=== PATIENT | male | born 1945 | race Caucasian/White ===

== ENCOUNTER 2018-05-09 14:45 | Inpatient (IN) | payer OTHER ==
[~2018-05-09] VITALS: Ht 175.3 cm; Wt 87.2 kg
[2018-05-09] MEDS ORDERED: SIMV40TA3 PO (17:03)
[2018-05-09] MEDS ORDERED: FENO200C PO (17:03)
[2018-05-09] MEDS ORDERED: OMEP-110 PO (17:03)
[2018-05-09] MEDS ORDERED: AMLO10TA8 PO (17:03)
[2018-05-09] MEDS ORDERED: LOSA50TA14 PO (17:03)
[2018-05-09] MEDS ORDERED: METO50TA82 PO (17:03)
[2018-05-09] MEDS ORDERED: ASPI-496 PO (17:03)
--- NOTE | 2018-05-09 17:05 | NUR ---
PT TO ED FOR DARK BLACK, TARRY STOOLS SINCE THIS AM. MILD NAUSEA REPORTED. NO VOMITING OR ABD PAIN. CONNECTED TO MONITORS. HTN 150S, ALL OTHER VSS. AWAITING EDMD ASSESSMENT.
[2018-05-09] MEDS ORDERED: PANTOPRAZOLE 80 MG in SODIUM CHLORIDE 0.9% 50 ML IVPB ONE (17:16)
[2018-05-09 17:34] LABS: BASOPHILS # (AUTO) 0.03 x10^3/uL (0-0.1); BASOPHILS % (AUTO) 0 % (0-1); EOSINOPHILS # (AUTO) 0.02 x10^3/uL (0-0.4); EOSINOPHILS % (AUTO) 0 % (1-7); LYMPHOCYTES # (AUTO) 1.67 x10^3/uL (1-3.4); LYMPHOCYTES % (AUTO) 22 % (22-44); MD NO; MEAN CORPUSCULAR HGB CONC 34.4 g/dL (33.2-36.2); MEAN CORPUSCULAR VOLUME 93.1 fL (81-97); MEAN PLATELET VOLUME 8.5 fL (7.4-10.4); MONOCYTES # (AUTO) 0.65 x10^3/uL (0.2-0.8); MONOCYTES % (AUTO) 9 % (2-9); NEUTROPHILS # (AUTO) 5.24 x10^3/uL (1.8-6.8); NEUTROPHILS % (AUTO) 69 % (42-75); PLATELET COUNT 228 x10^3/uL (130-400); RED BLOOD COUNT 4.83 x10^6/uL (4.38-5.82); RED CELL DISTRIBUTION WIDTH 13.1 % (9.4-14.8)
[2018-05-09 17:43] LABS: ALANINE AMINOTRANSFERASE 36 U/L (12-78); ALBUMIN 3.7 g/dL (3.4-5.0); ANION GAP 5 mmol/L (5-15); CALCIUM 10.4 mg/dL (8.5-10.1); CHLORIDE 112 mmol/L (98-107); CREATININE 0.94 mg/dL (0.7-1.3)
[2018-05-09 17:52] LABS: ALKALINE PHOSPHATASE 48 U/L (45-117); BILIRUBIN,TOTAL 0.6 mg/dL (0.2-1.0); TOTAL PROTEIN 6.7 g/dL (6.4-8.2); TROPONIN I 0.027 ng/mL (0.000-0.045)
[2018-05-09] MEDS: PANTOPRAZOLE 80 MG in SODIUM CHLORIDE 0.9% 100 ML IV SCH ×2 (18:20→20:36)
[2018-05-09] MEDS ORDERED: PANTOPRAZOLE 80 MG in SODIUM CHLORIDE 0.9% 100 ML IV SCH (19:00)
[2018-05-09] MEDS ORDERED: SODIUM CHLORIDE 0.9% 1,000 ML IV SCH (19:20)
[2018-05-09] MEDS ORDERED: ONDANSETRON 2MG/ML, 2ML IVPush PRN (19:30)
[2018-05-09] MEDS ORDERED: hydrALAzine 20 MG/ML, 1ML IVPush PRN (19:30)
[2018-05-09 19:49] VITALS: BP 162/110
[2018-05-09] MEDS: AMLODIPINE 5 MG TABLET PO SCH (20:35)
[2018-05-09] MEDS ORDERED: SIMVASTATIN 40 MG TABLET PO SCH (21:00)
[2018-05-09] MEDS ORDERED: AMLODIPINE 10 MG TAB PO SCH (21:00)
[2018-05-09] MEDS: LOSARTAN 50MG TABLET PO SCH (21:08)
[2018-05-10 01:21] LABS: ALANINE AMINOTRANSFERASE 33 U/L (12-78); ALBUMIN 3.6 g/dL (3.4-5.0); ANION GAP 4 mmol/L (5-15); CALCIUM 9.3 mg/dL (8.5-10.1); CHLORIDE 112 mmol/L (98-107)
[2018-05-10 01:24] LABS: ALKALINE PHOSPHATASE 49 U/L (45-117); BILIRUBIN,TOTAL 0.6 mg/dL (0.2-1.0); CREATININE 1.07 mg/dL (0.7-1.3); TOTAL PROTEIN 6.2 g/dL (6.4-8.2)
[2018-05-10 03:59] VITALS: BP 120/71
[2018-05-10 07:12] VITALS: BP 121/81
[2018-05-10] MEDS ORDERED: ACETAMINOPHEN 325 MG TABLET PO PRN (07:30)
[2018-05-10] MEDS: AMLODIPINE 5 MG TABLET PO SCH (08:47)
[2018-05-10] MEDS: LACTOBACILLUS CHEW TABLET PO SCH ×2 (08:47→16:00)
[2018-05-10] MEDS: LOSARTAN 50MG TABLET PO SCH (08:47)
[2018-05-10] MEDS ORDERED: METOPROLOL TARTRATE 50 MG TABLET PO SCH (09:00)
[2018-05-10 12:32] VITALS: BP 120/85
[2018-05-10] MEDS ORDERED: PROPOFOL 10 MG/ML, 20ML ONE (13:21)
[2018-05-10] MEDS ORDERED: SUCR1ORA5 PO (15:36)
[2018-05-10] MEDS ORDERED: ACID1TAB7 PO (15:36)
[2018-05-10] MEDS ORDERED: SUCRALFATE 1 GM/10 ML UDC PO SCH (16:00)
[2018-05-10] MEDS ORDERED: SODIUM CHLORIDE 0.9% 1,000 ML IV SCH (19:20)
[2018-05-11] MEDS ORDERED: OMEPRAZOLE 20 MG CAPSULE.DR PO SCH (06:00)
== END 2018-05-10 17:42 | disposition home or self-care (01) | DRG 378 ==
LOC: ED 18:34 → EDIP 18:36 → 3NE 19:40
PROVIDERS: ADMIT Family Medicine; ATTEND Family Medicine
PROC: 0D798ZZ Dilation of Duodenum, Via Natural or Artificial Opening Endoscopic (ICD-10-PCS; 2018-05-10)
PROC: 0DB68ZX Excision of Stomach, Via Natural or Artificial Opening Endoscopic, Diagnostic (ICD-10-PCS; principal; 2018-05-10 13:30)
DX: K25.4 Chronic or unspecified gastric ulcer with hemorrhage (principal); K31.5 Obstruction of duodenum; E86.0 Dehydration; E78.5 Hyperlipidemia, unspecified; G47.00 Insomnia, unspecified; I10 Essential (primary) hypertension; Z79.82 Long term (current) use of aspirin; Z86.010 Personal history of colon polyps; Z79.899 Other long term (current) drug therapy
CPT/HCPCS: 36415; 80053; 83690; 84484; 85014; 85018; 85025; 86850; 86900; 88305; 93005; 96365; 99285; G0378; J2704; C1725; C9113; J7030